=== PATIENT | female | born 1985 | race Two or more races ===

== ENCOUNTER 2018-11-18 15:18 | Emergency (ER) | payer BC ==
[2018-11-18 15:29] VITALS: BMI 43.9
[2018-11-18] MEDS ORDERED: Albuterol-Ipratrop 3 mg / 0.5 (3 ml) UD IH STA (15:50)
--- NOTE | 2018-11-18 17:22 | ED PDOC ---
Arrival/HPI - General Chief Complaint: Shortness Of Breath Time Seen by Provider: 11/18/18 15:40 Historian: Patient - History of Present Illness Narrative History of Present Illness (Text): 11/18/18 17:18 33yo female with pmhx of Asthma who present with complaint of SOB. States symptom started suddenly while at work. Notes similar symptom with her previous Asthma exacerbation. States she has never been admitted for Asthma. Never intubated and not steroid dependent. States she does not have inhaler at home. Denies fever, chills, chest pain, sick contact, any other complaint. Past Medical History - Provider Review Nursing Documentation Reviewed: Yes - Infectious Disease Hx of Infectious Diseases: None - Reproductive Currently : No - Pulmonary Hx Asthma: Yes - Psychiatric Hx Substance Use: No Family/Social History - Physician Review Nursing Documentation Reviewed: Yes Family/Social History: Unknown Family HX Smoking Status: Never Smoked Hx Alcohol Use: No Hx Substance Use: No Allergies/Home Meds Allergies/Adverse Reactions: Allergies No Known Allergies Allergy (Verified 12/13/13 11:29) Review of Systems - Physician Review All systems were reviewed & negative as marked: Yes - Review of Systems Constitutional: Normal Eyes: Normal ENT: Normal Respiratory: SOB. absent: Cough, Sputum, Wheezing Cardiovascular: Normal Gastrointestinal: Normal Genitourinary Female: Normal Musculoskeletal: Normal Skin: Normal Neurological: Normal Endocrine: Normal Hemo/Lymphatic: Normal Psychiatric: Normal Physical Exam Vital Signs Reviewed: Yes Vital Signs Temp Pulse Resp BP Pulse Ox 11/18/18 16:06 20 11/18/18 15:19 98.9 F 86 20 142/75 97 Temperature: Afebrile Blood Pressure: Normal Pulse: Regular Respiratory Rate: Normal Appearance: Positive for: Well-Appearing, Non-Toxic, Comfortable Pain Distress: None Mental Status: Positive for: Alert and Oriented X 3 - Systems Exam Head: Present: Atraumatic, Normocephalic Pupils: Present: PERRL Extroacular Muscles: Present: EOMI Conjunctiva: Present: Normal Mouth: Present: Moist Mucous Membranes Neck: Present: Normal Range of Motion Respiratory/Chest: Present: Good Air Exchange, Wheezes (Mild expiratory wheeze at the bases). No: Respiratory Distress, Accessory Muscle Use, Decreased Breath Sounds, Rales, Retracting, Rhonchi, Tachypneic, Tender to Palpation Cardiovascular: Present: Regular Rate and Rhythm, Normal S1, S2. No: Murmurs Abdomen: No: Tenderness, Distention, Peritoneal Signs Back: Present: Normal Inspection Upper Extremity: Present: Normal Inspection. No: Cyanosis, Edema Lower Extremity: Present: Normal Inspection. No: Edema Neurological: Present: GCS=15, CN II-XII Intact, Speech Normal Skin: Present: Warm, Dry, Normal Color. No: Rashes Psychiatric: Present: Alert, Oriented x 3, Normal Insight, Normal Concentration Medical Decision Making ED Course and Treatment: 11/18/18 19:39 33yo fewmale in ED for SOB x minutes [employer]. She had mild wheeze on arrival. she was however in no distress. Speaking in full sentence without distress. Duoneb x 3 Prednisone 60mg On re evaluation she notes resolution of her symptoms. Her lung was CTA b/l. she was Dc home with albuterol inhaler, prednisone and referred to her PMD - Medication Orders Current Medication Orders: Discontinued Medications Albuterol/Ipratropium (Duoneb 3 Mg/0.5 Mg (3 Ml) Ud) 3 ml IH Q15M STA Stop: 11/18/18 15:51 Last Admin: 11/18/18 16:03 Dose: 3 ml Prednisone (Prednisone Tab) 60 mg PO STAT ONE Stop: 11/18/18 15:51 Last Admin: 11/18/18 16:03 Dose: 60 mg Disposition/Present on Arrival - Present on Arrival Any Indicators Present on Arrival: No History of DVT/PE: No History of Uncontrolled Diabetes: No Urinary Catheter: No History of Decub. Ulcer: No History Surgical Site Infection Following: None - Disposition Have Diagnosis and Disposition been Completed?: Yes Diagnosis: Asthma Disposition: HOME/ ROUTINE Disposition Time: 17:25 Patient Plan: Discharge Condition: STABLE Discharge Instructions (ExitCare): Asthma in Adults Additional Instructions: Follow up with your Doctor Return to ED for any worsening symptoms Prescriptions: RX: Albuterol HFA [Ventolin HFA 90 mcg/actuation (8 g)] 2 puff IH [id number] #1 puff RX: Prednisone [Deltasone] 20 mg PO DAILY #4 tablet Referrals: Shama Bennett MD [Primary Care Provider] - Follow up with primary Forms: [employer] (Libyan)
[2018-11-18 17:45] VITALS: BP 150/79; PULSE 82; RESP 18; TEMP 98; O2SAT 100
== END 2018-11-18 17:46 | disposition home or self-care (01) ==
LOC: ED 15:18
DX: J45.909 Unspecified asthma, uncomplicated (principal)